=== PATIENT | male | born 1995 | race Caucasian/White ===

== ENCOUNTER → 2018-03-18 | Outpatient (CLI) | payer OTHER ==
[~2018-03-18] MED LIST: CYCL10 PO; Crutch1 EACH MISC; IBUP800 PO; Pepcid20 MG PO; SUBOXONE 12 MG1 EACH SL; Ultram50 MG PO; Zantac150 MG PO; Zofran Odt4 MG SL; Zofran Odt8 MG SL
== END | disposition home or self-care (01) ==
LOC: LAB SHORT 11:11 → LAB EV 11:11
DX: J02.9 Acute pharyngitis, unspecified (principal)
CPT/HCPCS: 87070

== ENCOUNTER 2018-10-18 17:53 | Emergency (ER) | payer OTHER ==
[~2018-10-18] VITALS: Ht 185.4 cm; Wt 93.0 kg
[2018-10-18] MEDS ORDERED: OMEPRAZOLE20 MG PO (18:00)
[2018-10-18] MEDS ORDERED: SUCR1 PO (18:01)
[2018-10-18] MEDS ORDERED: Zantac150 MG PO (18:01)
[2018-10-18] MEDS ORDERED: ERYT1OIN LEFTEYE (18:20)
== END 2018-10-18 18:25 | disposition home or self-care (01) ==
LOC: ER 17:53
DX: T15.92XA Foreign body on external eye, part unspecified, left eye, initial encounter (principal); S05.02XA Injury of conjunctiva and corneal abrasion without foreign body, left eye, initial encounter; W22.8XXA Striking against or struck by other objects, initial encounter; Z79.899 Other long term (current) drug therapy; Z87.891 Personal history of nicotine dependence
CPT/HCPCS: 65205; 99283-25

== ENCOUNTER 2018-11-23 13:26 | Emergency (ER) | payer OTHER ==
[~2018-11-23] VITALS: Ht 185.4 cm; Wt 93.0 kg
[~2018-11-23 13:26] MED LIST changes: +ERYT1OIN LEFTEYE; +OMEPRAZOLE20 MG PO; +SUCR1 PO
[2018-11-23] MEDS ORDERED: HYDR1TAB94 PO (14:41)
== END 2018-11-23 14:52 | disposition home or self-care (01) ==
LOC: ER 13:26
DX: M79.661 Pain in right lower leg (principal); M25.571 Pain in right ankle and joints of right foot; Z87.891 Personal history of nicotine dependence; Z79.899 Other long term (current) drug therapy
CPT/HCPCS: 73590; 73610; 99283-25